=== PATIENT | male | born 1965 | race Caucasian/White ===

== ENCOUNTER 2018-09-07 16:33 | Emergency (ER) | payer BC, SELFPAY ==
[2018-09-07 16:55] VITALS: BP 117/75; PULSE 62; RESP 15; TEMP 36.2; O2SAT 98; BMI 22.9
--- NOTE | 2018-09-07 17:20 | ED.EYEPROB ---
HPI - Eye Problem <FRAN Mendenhall - Last Filed: 09/07/18 22:26> General Chief complaint: Eye Problems Stated complaint: LEFT EYE INJURY Time Seen by Provider: 09/07/18 17:16 Source: patient Mode of arrival: ambulatory Limitations: no limitations History of Present Illness HPI Narrative: 53-year-old male with history of depression is a nonsmoker for complaint of irritation to his left eye. He states that he was moving some shrubs and tree cutting some into his pickup truck to take to the dump when accidentally brushed up against a stick that was protruding out injuring his left eye. He reports having watering to the left eye. Injury is limited to the left eye. He denies any visual changes except due to the watering. He believes that his tetanus is up-to-date. He reports immunizations are up-to-date. He reports having minor pain to the left eye. No other concerns or complaints at this timeframe. MD chief complaint: eye pain and eye injury Related Data Home Medications Medication Instructions Recorded Confirmed multivitamin [Multiple Vitamins] 1 tab PO QDAY #0 tab 04/04/16 04/14/18 vitamins A,C,Q-[id number] [ICaps 1 ea PO #0 04/04/16 04/14/18 AREDS] Previous Rx's Medication Instructions Recorded ciprofloxacin HCl 2 drop EYE-LEFT QID 5 Days #2.5 ml 09/07/18 hydrocodone-acetaminophen [[place]] 1 tab PO Q4-6H PRN #10 tab 09/07/18 Allergies Allergy/AdvReac Type Severity Reaction Status Date / Time No Known Drug Allergies Allergy Verified 09/07/18 16:55 Review of Systems <FRAN Mendenhall - Last Filed: 09/07/18 22:26> Constitutional Denies chills, Denies fever(s), Denies lethargy and Denies weakness Eyes Comments: Injury left eye ENT Ears, Nose, Mouth, and Throat: Denies change in voice, Denies neck pain and Denies sore throat Cardiovascular Denies chest pain, Denies irregular heart rhythm, Denies lightheadedness, Denies palpitations, Denies dyspnea, Denies dyspnea on exertion and Denies orthopnea Respiratory Denies cough, Denies dyspnea, Denies dyspnea on exertion and Denies wheezing Gastrointestinal Gastrointestinal: Denies abdominal pain, Denies change in bowel habits, Denies diarrhea, Denies nausea and Denies vomiting Genitourinary Denies hematuria, Denies flank pain, Denies urinary incontinence and Denies urinary urgency Musculoskeletal Denies neck pain Integumentary/Breasts Denies pruritus, Denies erythema, Denies rash and Denies wounds Neurologic Denies weakness Endocrine Denies palpitations Allergic/Immunologic Denies wheezing PFSH <FRAN Mendenhall - Last Filed: 09/07/18 22:26> Medical History Depression (Chronic) Erectile dysfunction (Chronic) Hearing loss (Chronic 2009) Tinnitus (Chronic 2006) Colon polyps (Resolved 2014) Surgical History Anesthesia (Resolved) History of anterior cruciate ligament surgery (Resolved 2002) History of colonoscopy with polypectomy (Resolved 2014) History of vasectomy (Resolved 1994) Family History (Updated 04/14/18 @ 14:36 by Jayna Valdez) Mother Age: 83 Dementia Mental health problem Macular degeneration Diabetes mellitus Brother No problems noted. Brother No problems noted. Brother No problems noted. Father Heart disease CAD (coronary artery disease) S/P CABG (coronary artery bypass graft) Tobacco abuse [place] (myocardial infarction) Daughter SLE (systemic lupus erythematosus) Daughter No problems noted. Daughter No problems noted. Social History Smoking Status: Never smoker Family History Mother Age: 83 Dementia Mental health problem Macular degeneration Diabetes mellitus Brother No problems noted. Brother No problems noted. Brother No problems noted. Father Heart disease CAD (coronary artery disease) S/P CABG (coronary artery bypass graft) Tobacco abuse [place] (myocardial infarction) Daughter SLE (systemic lupus erythematosus) Daughter No problems noted. Daughter No problems noted. Social History Smoking Status: Never smoker Exam <FRAN Mendenhall - Last Filed: 09/07/18 22:26> Initial Vital Signs Initial Vital Signs: Vital Signs Temperature 97.1 F L 09/07/18 16:55 Pulse Rate 62 09/07/18 16:55 Respiratory Rate 15 09/07/18 16:55 Blood Pressure 117/75 09/07/18 16:55 Pulse Oximetry 98 09/07/18 16:55 Const General: cooperative and well developed Nutritional Appearance: well nourished Orientation: alert, awake, oriented x3 and not confused [facility] Mouth: oral mucosae normal and moist mucous membranes Eyes Eyelids: eyelids normal Conjunctivae: conjunctival abnormality left conjunctival injection Sclera: scleral abnormality left scleral injection Cornea: fluorescein used (Corneal abrasion appreciated to the left cornea approximately 5 mm) Pupils: PERRL EOM: EOM intact bilaterally Resp Effort & Inspection: normal respiratory effort, able to speak in complete sentences, no respiratory distress and no use of accessory muscles Auscultation: clear to auscultation bilaterally, no rales, no rhonchi and no wheezes Cardio Rate: regular rate Rhythm: regular rhythm Heart Sounds: no click, no gallops, no murmurs and no rubs Pulses: normal peripheral pulses Neuro General: alert, oriented x3, gait normal and no focal motor deficits Speech: speech normal <Bunny Lira DO - Last Filed: 09/08/18 02:01> Initial Vital Signs Initial Vital Signs: Vital Signs Temperature 97.1 F L 09/07/18 16:55 Pulse Rate 62 09/07/18 16:55 Respiratory Rate 15 09/07/18 16:55 Blood Pressure 117/75 09/07/18 16:55 Pulse Oximetry 98 09/07/18 16:55 Course <FRAN Mendenhall - Last Filed: 09/07/18 22:26> Orders Ordered: Discontinued Medications Proparacaine HCl (Parcaine 0.5% Ophth [place]) 1 drops EYE-LEFT NOW ONE Stop: 09/07/18 18:10 Last Admin: 09/07/18 18:09 Dose: 1 drop Vital Signs - 8 hr 09/07/18 18:10 Pulse Rate 65 Respiratory Rate 16 Blood Pressure 131/73 Pulse Oximetry 100 <Bunny Lira DO - Last Filed: 09/08/18 02:01> Orders Ordered: Discontinued Medications Proparacaine HCl (Parcaine 0.5% Ophth [place]) 1 drops EYE-LEFT NOW ONE Stop: 09/07/18 18:10 Last Admin: 09/07/18 18:09 Dose: 1 drop Vital Signs - 8 hr 09/07/18 18:10 Pulse Rate 65 Respiratory Rate 16 Blood Pressure 131/73 Pulse Oximetry 100 MDM - Eye Problem <FRAN Mendenhall - Last Filed: 09/07/18 22:26> [facility] Narrative Medical decision making narrative: Fluorescein exam with Wood's lamp shows a 5 mm corneal abrasion to the anterior/6:00 position of the left cornea. He is placed on ciprofloxacin drops. [id number] Tylenol and Motrin as needed for any discomfort. Small amount of [place] is prescribed for breakthrough pain. Follow up with primary care provider in the next few days for re-evaluation. Visual acuity was normal. Discharge Plan Departure Patient Disposition: Home Clinical Impression: Corneal abrasion Qualifiers: Encounter type: initial encounter Laterality: left Qualified Code(s): S05.02XA - Injury of conjunctiva and corneal abrasion without foreign body, left eye, initial encounter Discharge Date/Time: 09/07/18 18:10 Interventions: ED Discharge Assessment Last Done: 09/07/18 18:10 Instructions: DI for Corneal Abrasion Activity Restrictions/Additional Instructions: On exam corneal abrasion is appreciated. You are placed on an antibiotic to prevent infection. Use as directed. Use [id number] Tylenol or Motrin as needed for any discomfort. Small amount of [place] is provided for breakthrough pain. Follow up with her primary care provider for re-evaluation. For any worsening symptoms return to the emergency room. Prescriptions: New ciprofloxacin HCl 0.3 % drops 2 drop EYE-LEFT QID 5 Days Qty: 2.5 RF: 0 hydrocodone-acetaminophen [[place]] 5-325 mg tablet 1 tab PO Q4-6H PRN (Reason: pain) Qty: 10 RF: 0 No Action multivitamin [Multiple Vitamins] 1 EACH tablet 1 tab PO QDAY Qty: 0 RF: 0 vitamins A,C,T-ryxe-tyfstc [ICaps AREDS] 1 EACH capsule 1 ea PO Qty: 0 RF: 0 Referrals: Christa Thompson DO [Primary Care Provider] - <Bunny Lira DO - Last Filed: 09/08/18 02:01> Cosign ED Attending Rupertature Attestation: I was available for consultation during this patient's emergency department encounter
--- NOTE | 2018-09-07 17:45 | ED_ITS ---
HPI - Eye Problem <FRAN Mendenhall - Last Filed: 09/07/18 22:26> General Chief complaint: Eye Problems Stated complaint: LEFT EYE INJURY Time Seen by Provider: 09/07/18 17:16 Source: patient Mode of arrival: ambulatory Limitations: no limitations History of Present Illness HPI Narrative: 53-year-old male with history of depression is a nonsmoker for complaint of irritation to his left eye. He states that he was moving some shrubs and tree cutting some into his pickup truck to take to the dump when accidentally brushed up against a stick that was protruding out injuring his left eye. He reports having watering to the left eye. Injury is limited to the left eye. He denies any visual changes except due to the watering. He believes that his tetanus is up-to-date. He reports immunizations are up-to-date. He reports having minor pain to the left eye. No other concerns or complaints at this timeframe. MD chief complaint: eye pain and eye injury Related Data Home Medications Medication Instructions Recorded Confirmed multivitamin [Multiple Vitamins] 1 tab PO QDAY #0 tab 04/04/16 04/14/18 vitamins A,C,X-yuqq-ufipwv [ICaps 1 ea PO #0 04/04/16 04/14/18 AREDS] Previous Rx's Medication Instructions Recorded ciprofloxacin HCl 2 drop EYE-LEFT QID 5 Days #2.5 ml 09/07/18 hydrocodone-acetaminophen [[place]] 1 tab PO Q4-6H PRN #10 tab 09/07/18 Allergies Allergy/AdvReac Type Severity Reaction Status Date / Time No Known Drug Allergies Allergy Verified 09/07/18 16:55 Review of Systems <FRAN Mendenhall - Last Filed: 09/07/18 22:26> Constitutional Denies chills, Denies fever(s), Denies lethargy and Denies weakness Eyes Comments: Injury left eye ENT Ears, Nose, Mouth, and Throat: Denies change in voice, Denies neck pain and Denies sore throat Cardiovascular Denies chest pain, Denies irregular heart rhythm, Denies lightheadedness, Denies palpitations, Denies dyspnea, Denies dyspnea on exertion and Denies orthopnea Respiratory Denies cough, Denies dyspnea, Denies dyspnea on exertion and Denies wheezing Gastrointestinal Gastrointestinal: Denies abdominal pain, Denies change in bowel habits, Denies diarrhea, Denies nausea and Denies vomiting Genitourinary Denies hematuria, Denies flank pain, Denies urinary incontinence and Denies urinary urgency Musculoskeletal Denies neck pain Integumentary/Breasts Denies pruritus, Denies erythema, Denies rash and Denies wounds Neurologic Denies weakness Endocrine Denies palpitations Allergic/Immunologic Denies wheezing PFSH <FRAN Mendenhall - Last Filed: 09/07/18 22:26> Medical History Depression (Chronic) Erectile dysfunction (Chronic) Hearing loss (Chronic 2009) Tinnitus (Chronic 2006) Colon polyps (Resolved 2014) Surgical History Anesthesia (Resolved) History of anterior cruciate ligament surgery (Resolved 2002) History of colonoscopy with polypectomy (Resolved 2014) History of vasectomy (Resolved 1994) Family History (Updated 04/14/18 @ 14:36 by Jayna Valdez) Mother Age: 83 Dementia Mental health problem Macular degeneration Diabetes mellitus Brother No problems noted. Brother No problems noted. Brother No problems noted. Father Heart disease CAD (coronary artery disease) S/P CABG (coronary artery bypass graft) Tobacco abuse [place] (myocardial infarction) Daughter SLE (systemic lupus erythematosus) Daughter No problems noted. Daughter No problems noted. Social History Smoking Status: Never smoker Family History Mother Age: 83 Dementia Mental health problem Macular degeneration Diabetes mellitus Brother No problems noted. Brother No problems noted. Brother No problems noted. Father Heart disease CAD (coronary artery disease) S/P CABG (coronary artery bypass graft) Tobacco abuse [place] (myocardial infarction) Daughter SLE (systemic lupus erythematosus) Daughter No problems noted. Daughter No problems noted. Social History Smoking Status: Never smoker Exam <FRAN Mendenhall - Last Filed: 09/07/18 22:26> Initial Vital Signs Initial Vital Signs: Vital Signs Temperature 97.1 F L 09/07/18 16:55 Pulse Rate 62 09/07/18 16:55 Respiratory Rate 15 09/07/18 16:55 Blood Pressure 117/75 09/07/18 16:55 Pulse Oximetry 98 09/07/18 16:55 Const General: cooperative and well developed Nutritional Appearance: well nourished Orientation: alert, awake, oriented x3 and not confused [facility] Mouth: oral mucosae normal and moist mucous membranes Eyes Eyelids: eyelids normal Conjunctivae: conjunctival abnormality left conjunctival injection Sclera: scleral abnormality left scleral injection Cornea: fluorescein used (Corneal abrasion appreciated to the left cornea approximately 5 mm) Pupils: PERRL EOM: EOM intact bilaterally Resp Effort & Inspection: normal respiratory effort, able to speak in complete sentences, no respiratory distress and no use of accessory muscles Auscultation: clear to auscultation bilaterally, no rales, no rhonchi and no wheezes Cardio Rate: regular rate Rhythm: regular rhythm Heart Sounds: no click, no gallops, no murmurs and no rubs Pulses: normal peripheral pulses Neuro General: alert, oriented x3, gait normal and no focal motor deficits Speech: speech normal <Bunny Lira DO - Last Filed: 09/08/18 02:01> Initial Vital Signs Initial Vital Signs: Vital Signs Temperature 97.1 F L 09/07/18 16:55 Pulse Rate 62 09/07/18 16:55 Respiratory Rate 15 09/07/18 16:55 Blood Pressure 117/75 09/07/18 16:55 Pulse Oximetry 98 09/07/18 16:55 Course <FRAN Mendenhall - Last Filed: 09/07/18 22:26> Orders Ordered: Discontinued Medications Proparacaine HCl (Parcaine 0.5% Ophth [place]) 1 drops EYE-LEFT NOW ONE Stop: 09/07/18 18:10 Last Admin: 09/07/18 18:09 Dose: 1 drop Vital Signs - 8 hr 09/07/18 18:10 Pulse Rate 65 Respiratory Rate 16 Blood Pressure 131/73 Pulse Oximetry 100 <Bunny Lira DO - Last Filed: 09/08/18 02:01> Orders Ordered: Discontinued Medications Proparacaine HCl (Parcaine 0.5% Ophth [place]) 1 drops EYE-LEFT NOW ONE Stop: 09/07/18 18:10 Last Admin: 09/07/18 18:09 Dose: 1 drop Vital Signs - 8 hr 09/07/18 18:10 Pulse Rate 65 Respiratory Rate 16 Blood Pressure 131/73 Pulse Oximetry 100 MDM - Eye Problem <FRAN Mendenhall - Last Filed: 09/07/18 22:26> [facility] Narrative Medical decision making narrative: Fluorescein exam with Wood's lamp shows a 5 mm corneal abrasion to the anterior/6:00 position of the left cornea. He is placed on ciprofloxacin drops. [id number] Tylenol and Motrin as needed for any discomfort. Small amount of [place] is prescribed for breakthrough pain. Follow up with primary care provider in the next few days for re-evaluation. Visual acuity was normal. Discharge Plan Departure Patient Disposition: Home Clinical Impression: Corneal abrasion Qualifiers: Encounter type: initial encounter Laterality: left Qualified Code(s): S05.02XA - Injury of conjunctiva and corneal abrasion without foreign body, left eye, initial encounter Discharge Date/Time: 09/07/18 18:10 Interventions: ED Discharge Assessment Last Done: 09/07/18 18:10 Instructions: DI for Corneal Abrasion Activity Restrictions/Additional Instructions: On exam corneal abrasion is appreciated. You are placed on an antibiotic to prevent infection. Use as directed. Use [id number] Tylenol or Motrin as needed for any discomfort. Small amount of [place] is provided for breakthrough pain. Follow up with her primary care provider for re-evaluation. For any worsening symptoms return to the emergency room. Prescriptions: New ciprofloxacin HCl 0.3 % drops 2 drop EYE-LEFT QID 5 Days Qty: 2.5 RF: 0 hydrocodone-acetaminophen [[place]] 5-325 mg tablet 1 tab PO Q4-6H PRN (Reason: pain) Qty: 10 RF: 0 No Action multivitamin [Multiple Vitamins] 1 EACH tablet 1 tab PO QDAY Qty: 0 RF: 0 vitamins A,C,R-ocgz-qriugd [ICaps AREDS] 1 EACH capsule 1 ea PO Qty: 0 RF: 0 Referrals: Christa Thompson DO [Primary Care Provider] - <Bunny Lira DO - Last Filed: 09/08/18 02:01> Cosign ED Attending Rupertature Attestation: I was available for consultation during this patient's emergency department encounter
[2018-09-07] MEDS: PROPARACAINE 0.5% OPHTH SOL 1 DROPS EYE-LEFT (18:09)
[2018-09-07 18:10] VITALS: BP 131/73; PULSE 65; RESP 16; O2SAT 100
== END 2018-09-07 18:10 | disposition home or self-care (01) ==
PROVIDERS: Emergency Provider Nurse Practitioner Family; Family Provider Family Medicine; PCP Family Medicine
DX: S05.02XA Injury of conjunctiva and corneal abrasion without foreign body, left eye, initial encounter (principal)
CPT/HCPCS: 99283

== ENCOUNTER → 2018-10-07 07:18 | Outpatient (CLI) | payer BC, SELFPAY ==
[2018-10-07 08:57] LABS: Add Manual Diff / Slide Review NO; Basophils Absolute Auto 0 /uL (0-100); Basophils Percent Auto 1.1 % (0-2); Eosinophils Absolute Auto 100 /uL (0-450); Eosinophils Percent Auto 1.4 % (2-4); Hematocrit 42.9 % (41-53); Hemoglobin 14.9 g/dL (13.5-17.5); Lymphocytes Absolute Auto 1500 /uL (1100-4500); Lymphocytes Percent Auto 35.9 % (25-40); Mean Corpuscular HGB Conc 34.8 % (30-36); Mean Corpuscular Hemoglobin 31.8 PG (26-34); Mean Corpuscular Volume 91.3 fL (80-100); Monocytes Absolute Auto 400 /uL (0-900); Neutrophils Absolute Auto 2200 /uL (1500-7000); Neutrophils Percent Auto 52.6 % (50-75); Platelet Count 248 X10^3/uL (150-400); Red Cell Distribution Width 12.8 % (11.6-14.8); White Blood Cell Count 4.3 X10^3/uL (4.5-11.0)
[2018-10-07 09:28] LABS: Alanine Aminotransferase 33 IU/L (21-72); Albumin 4.4 g/dL (3.5-5.0); Albumin Globulin Ratio 1.8 (1.0-2.8); Alkaline Phosphatase 47 U/L (38-126); Aspartate Aminotransferase 31 IU/L (17-59); Bilirubin Total 0.4 mg/dL (0.2-1.3); Blood Urea Nitrogen 18 mg/dL (9-20); Calcium 9.2 mg/dL (8.4-10.2); Carbon Dioxide 29 mmol/L (22-32); Chloride 102 mmol/L (98-107); Cholesterol 167 mg/dL (140-199); Estimated Glomerular Filt Rate > 60.0 mL/min (>60); Globulin 2.4 g/dL (1.7-4.1); Glucose 86 mg/dL (70-100); HDL Cholesterol 63 mg/dL (40-60); HEMOLYSIS < 15 (0-50); LDL Cholesterol Calculated 93 mg/dL (<100); Potassium 4.4 mmol/L (3.4-5.1); Sodium 138 mmol/L (137-145); Total Protein 6.8 g/dL (6.3-8.2); Triglycerides 56 mg/dL (35-150)
[2018-10-07 09:53] LABS: Prostate Specific Antigen Scrn 1.08 ng/mL (0.1-4.0)
[2018-10-07 09:55] LABS: TSH w/ Reflex to FT4 1.96 uIU/mL (0.47-4.68)
== END ==
PROVIDERS: PCP Family Medicine; Visit Provider Family Medicine
DX: N52.9 Male erectile dysfunction, unspecified (principal); Z13.6 Encounter for screening for cardiovascular disorders; Z13.83 Encounter for screening for respiratory disorder NEC; Z13.89 Encounter for screening for other disorder; Z13.29 Encounter for screening for other suspected endocrine disorder; Z12.5 Encounter for screening for malignant neoplasm of prostate
CPT/HCPCS: 36415; 80053; 80061; 84443; 85025; G0103

== ENCOUNTER → 2019-03-22 16:38 | Outpatient (CLI) | payer SELFPAY ==
[2019-03-22 17:10] LABS: Urine Drug scr, USCG NIDA See Separate Report
== END ==
PROVIDERS: PCP Family Medicine
DX: Z04.89 Encounter for examination and observation for other specified reasons (principal)
CPT/HCPCS: 81099

== ENCOUNTER 2019-09-29 17:25 | Emergency (ER) | payer BC, SELFPAY ==
--- NOTE | 2019-09-29 17:33 | PC.NURSE ---
pt states he was picking up something heavy and felt a pop in his L bicep area. equal back end architect, unable to push up on my hand with his L hand/arm due to pain. mild swelling to L AC area.
[2019-09-29 17:34] VITALS: BP 136/80; PULSE 67; RESP 16; TEMP 36.8; O2SAT 97; BMI 22.9
--- NOTE | 2019-09-29 17:53 | ED_ITS ---
HPI - Extremity Injury (Upper) <FRAN Fierro - Last Filed: 09/29/19 23:23> General Chief Complaint: Extremity Injury, Upper Stated Complaint: thinks torn left bicep Time Seen by Provider: 09/29/19 17:37 Source: patient and family Mode of arrival: Ambulatory Limitations: no limitations History of Present Illness HPI narrative: This is a 54 year male, nonsmoker, who presents to ED with significant other with left deltoid discomfort. Patient reports he was lifting heavy piece of furniture off the floor and he felt sudden pop over the bicep and discomfort and weakness to left arm. Patient denies any discomfort with rest but increasing pain with flexion and extension which pain radiates down to forearm. Patient right dominant hand. Patient states intact sensation. Adam abimbola called [facility] office and was suggested for an ED evaluation and MRI test to be done. Patient has not taken any medications before coming into ED. patient had knee surgery in the past otherwise states healthy. Related Data Home Medications Medication Instructions Recorded Confirmed multivitamin [Multiple Vitamins] 1 tab PO QDAY #0 tab 04/04/16 04/14/18 vitamins A,C,F-mddc-vjdcpb [ICaps 1 ea PO #0 04/04/16 04/14/18 AREDS] Previous Rx's Medication Instructions Recorded hydrocodone-acetaminophen [[place]] 1 tab PO Q4-6H PRN #10 tab 09/07/18 sildenafil 25 mg tablet 25 mg PO DAILY PRN #30 tab 10/14/18 Allergies Allergy/AdvReac Type Severity Reaction Status Date / Time No Known Drug Allergies Allergy Verified 09/07/18 16:55 Review of Systems <FRAN Fierro - Last Filed: 09/29/19 23:23> Review of Systems Narrative: General: Denies fever, chills, fatigue, malaise, sweats. HEENT: Denies sinus pain, ear pain, sore throat, difficulty swallowing, dizziness. Respiratory: Denies dyspnea, cough, wheezing, hemoptysis, sputum. Cardiovascular: Denies chest pain, palpitations, orthopnea, edema. Gastrointestinal: Denies nausea, vomiting, abdominal pain, diarrhea, constipation, melena. : Denies dysuria, frequency, incontinence, hematuria, urinary retention. Musculoskeletal: See HPI Skin: Denies rash, skin lesions, or other. Neurologic: Denies weakness, headache, numbness, change in speech, confusion, seizures, incoordination. Psychiatric: No concerning psychosocial issues. 12-point review of systems is negative except for those stated above. Patient History <FRAN Fierro - Last Filed: 09/29/19 23:23> Medical History Colon polyps (Resolved 2014) Depression (Chronic) Erectile dysfunction (Chronic) Hearing loss (Chronic 2009) Tinnitus (Chronic 2006) Surgical History Anesthesia (Resolved) History of anterior cruciate ligament surgery (Resolved 2002) History of colonoscopy with polypectomy (Resolved 2014) History of vasectomy (Resolved 1994) Family History Mother Age: 85 Dementia Mental health problem Macular degeneration Diabetes mellitus Brother No problems noted. Brother No problems noted. Brother No problems noted. Father Heart disease CAD (coronary artery disease) S/P CABG (coronary artery bypass graft) Tobacco abuse [place] (myocardial infarction) Daughter SLE (systemic lupus erythematosus) Daughter No problems noted. Daughter No problems noted. Social History Smoking Status: Never smoker Smoking Status: Never smoker alcohol intake frequency: 0-2 drinks per day Substance Use Type: does not use Exam <FRAN Fierro - Last Filed: 09/29/19 23:23> Narrative Exam Narrative: General appearance: well developed, well nourished, in no acute distress. Head: normocephalic, atraumatic, no scalp lesions, non-tender. ENT: Difficulty hearing. Nose without bleeding, purulent discharge. Mucous membrane moist, no mucosal lesion. Throat without erythema, tonsillar hypertrophy or exudate. Uvula in midline, airway patent. Neck/Thyroid: neck supple, full range of motion, no visible masses or meningeal signs. No JVD, non-tender without lymphadenopathy. Skin: no suspicious rashes, lesions over visible areas. Warm and dry and appropriate color for ethnicity. Heart: no clubbing, no cyanosis, no edema. S1 and S2 normal. RRR w/o murmurs, clicks, or bruits. Lungs: Breathing even and unlabored. No stridor. No accessory muscles used. Able to speak in full sentences. Chest: normal shape and expansion. Abdomen: non-obese, non-distended. Neurologic: alert and oriented. Cognitive exam, [employer] and PNS grossly intact on informal exam. Psych: good eye contact, normal affect. Initial Vital Signs Initial Vital Signs: Vital Signs Temperature 98.2 F 09/29/19 17:34 Pulse Rate 67 09/29/19 17:34 Respiratory Rate 16 09/29/19 17:34 Blood Pressure 136/80 09/29/19 17:34 Pulse Oximetry 97 09/29/19 17:34 Extrem Left upper extremity: normal to inspection, full ROM, normal capillary refill, shoulder/upper arm Details: inspection abnormal, tenderness Location: over the biceps tendon (Radiating to forearm with flexion and extension motion) and normal ROM; no swelling, no ecchymosis, no deformity and no unsual warmth and elbow/forearm Details: normal to inspection, tenderness (Palmar aspect forearm discomfort with flexion and extension), normal ROM and distal pulses intact; no unusual warmth, no ecchymosis, no crepitus and no deformity; no cyanosis and no edema <Sushma Crouch DO - Last Filed: 09/30/19 07:26> Initial Vital Signs Initial Vital Signs: Vital Signs Temperature 98.2 F 09/29/19 17:34 Pulse Rate 67 09/29/19 17:34 Respiratory Rate 16 09/29/19 17:34 Blood Pressure 136/80 09/29/19 17:34 Pulse Oximetry 97 09/29/19 17:34 Scores <FRAN Fierro - Last Filed: 09/29/19 23:23> GCS [place] coma scale eye opening: Spontaneous [place] coma scale verbal response: Orientated [place] coma scale motor response: Obey commands [place] coma scale total score: 15 Course <FRAN Fierro - Last Filed: 09/29/19 23:23> Vital Signs Vital signs: Vital Signs - 8 hr 09/29/19 17:34 Temperature 98.2 F Pulse Rate 67 Respiratory Rate 16 Blood Pressure 136/80 Pulse Oximetry 97 <Sushma Crouch DO - Last Filed: 09/30/19 07:26> Vital Signs Vital signs: Vital Signs - 8 hr 09/29/19 17:34 Temperature 98.2 F Pulse Rate 67 Respiratory Rate 16 Blood Pressure 136/80 Pulse Oximetry 97 [facility] - Extremity Injury (Upper) <FRAN Fierro - Last Filed: 09/29/19 23:23> Differential Diagnosis Differential diagnosis: Likely other (Partial biceps tendon rupture, tendinitis, strain of left upper arm) Medical Records Attestation: I reviewed the patient's medical records. [facility] Narrative Medical decision making narrative: This is a 54-year-old male who presents to ED with chief complain of left deltoid discomfort with flexion and extension which radiates to primary aspect of forearm after he lifted up a have him piece furniture off the floor and felt a pop. Patient and spouse significant other states they are here to have MRI test done as suggested by [facility] office when they contacted. Patient had intact sensation on left upper arm. No obvious deformity noted at rest and flexing left arm. Strength was equal bilaterally on upper extremities. Patient and significant other informed that MRI test could be arranged by PCP or orthopedist if this is indicated of patiently since it is after hours and MRI test is not indicated per physical exam. Patient offered with ice pack, NSAIDS, Tylenol and acewrap for discomfort, inflammation, rest. However, patient states he could take his own Tylenol, Motrin, Shay wrap at home. They state they are here only for MRI test. Patient advised to use RICE therapy for next few days if his discomfort impro ves since this could be tendinitis and follow-up with [facility] orthopedist/PCP with persistent pain or weakness. Patient verbalized understanding and agreement with treatment plan. Discharge Plan Departure Patient Disposition: Home Clinical Impression: Arm pain, left Discharge Date/Time: 09/29/19 18:22 Instructions: DI for Tendinitis, DI for Arm Pain Activity Restrictions/Additional Instructions: You have been diagnosed with [left arm pain. It is likely her pain is due to tendinitis or partial biceps tendon injury/rupture. Unfortunately, MRI test is not done today. This can be arranged by her primary care physician or orthopedist.]. What to do: *Take your medications as directed. You can take [id number] Tylenol and or Motrin as needed for discomfort. NSAIDs helps with the inflmmaion. You can take 650-1000 mg Tylenol 3 to 4 times a day. Motrin/ibuprofen 400 mg 3 times a day with food. You can use cool pack on affected site for next couple of days. Use Shay wrap to remind yourself to decrease flex and extend of year upper. *Follow up with your primary care provider in 2-3 days, call for an appointment. Let them know you were seen in the ED and that we asked you to be seen in follow up. *Return to ED if you have any new, worsening, or concerning symptoms, such as [chest pain, breathing difficulty, unable to tolerate fluids, week/tingling/numbness to affected arm fever or any acute concerns.]. Prescriptions: No Action sildenafil 25 mg tablet 25 mg PO DAILY PRN (Reason: sexual activity) Qty: 30 RF: 0 multivitamin [Multiple Vitamins] 1 EACH tablet 1 tab PO QDAY Qty: 0 RF: 0 vitamins A,C,M-hnzu-aazxpg [ICaps AREDS] 1 EACH capsule 1 ea PO Qty: 0 RF: 0 hydrocodone-acetaminophen [[place]] 5-325 mg tablet 1 tab PO Q4-6H PRN (Reason: pain) Qty: 10 RF: 0 Referrals: [facility] [Provider Group] Christa Thompson DO [Primary Care Provider] -
== END 2019-09-29 18:22 | disposition home or self-care (01) ==
PROVIDERS: Emergency Provider Nurse Practitioner Family; PCP Family Medicine
DX: M79.622 Pain in left upper arm (principal); X50.0XXA Overexertion from strenuous movement or load, initial encounter
CPT/HCPCS: 99281

== ENCOUNTER → 2019-10-02 15:19 | Outpatient (CLI) | payer BC, SELFPAY ==
--- NOTE | 2019-10-02 | DI.MRI.S_ITS ---
PROCEDURE: MR ELBOW LT W CON INDICATIONS: Pain in left upper arm TECHNIQUE: Noncontrast coronal proton density fast spin echo and T2 fast spin echo with fat saturation, axial and sagittal T1 spin echo and T2 fast spin echo with fat saturation through the elbow. COMPARISON: None. FINDINGS: Image quality: Excellent. Lateral structures: The lateral ulnar collateral ligament and radial collateral ligament both appear intact. The overlying common extensor tendon also appears normal. Medial structures: The ulnar collateral ligament appears intact. The overlying common flexor tendon appears normal. The ulnar nerve appears normal in size and signal within the cubital tunnel. Anterior structures: Complete rupture of the biceps tendon is seen which is approximately 2.2 cm retracted from the insertion site. Tendon stump visualized on image 8/5, image 18/9 There is adjacent fluid and edema. Brachialis tendon appears grossly intact The median and radial neurovascular bundles appear normal; no focal muscle atrophy to suggest nerve impingement. Posterior structures: There is mild distal insertional triceps tendinopathy No olecranon bursal fluid. Bone and cartilage: No bone marrow contusions or fractures. No osteochondral injuries. IMPRESSION: Complete rupture of the biceps tendon as detailed above Mild distal insertional triceps tendinopathy, technically age-indeterminate Dictated by: Arsh Geller M.D. on 10/02/2019 at 16:54 Approved by: Arsh Geller M.D. on 10/02/2019 at 17:01
[2019-10-03 00:54] LABS: COVID19 Sendout Not Detected (Not Detect)
== END ==
PROVIDERS: Physician Assistant; PCP Family Medicine; Referring Provider Family Medicine; Visit Provider Orthopaedic Surgery
DX: Z01.812 Encounter for preprocedural laboratory examination (principal); M79.622 Pain in left upper arm; S46.212A Strain of muscle, fascia and tendon of other parts of biceps, left arm, initial encounter
CPT/HCPCS: 73221; 87635

== ENCOUNTER → 2019-12-08 08:24 | Outpatient (CLI) | payer BC, SELFPAY ==
[2019-12-08 08:50] LABS: Add Manual Diff / Slide Review NO; Basophils Absolute Auto 100 /uL (0-100); Basophils Percent Auto 1.1 % (0-2); Eosinophils Absolute Auto 0 /uL (0-450); Hemoglobin 15.3 g/dL (13.5-17.5); Lymphocytes Absolute Auto 1900 /uL (1100-4500); Lymphocytes Percent Auto 39.6 % (25-40); Mean Corpuscular HGB Conc 34.7 % (30-36); Mean Corpuscular Hemoglobin 31.6 PG (26-34); Mean Corpuscular Volume 91.2 fL (80-100); Monocytes Absolute Auto 500 /uL (0-900); Monocytes Percent Auto 10.5 % (3-14); Neutrophils Absolute Auto 2300 /uL (1500-7000); Neutrophils Percent Auto 47.8 % (50-75); Platelet Count 237 X10^3/uL (150-400); Red Blood Cell Count 4.83 X10^6/uL (4.5-5.9); Red Cell Distribution Width 13.5 % (11.6-14.8); White Blood Cell Count 4.8 X10^3/uL (4.5-11.0)
[2019-12-08 09:11] LABS: Alanine Aminotransferase 26 IU/L (<50); Albumin 4.6 g/dL (3.5-5.0); Alkaline Phosphatase 54 U/L (38-126); Aspartate Aminotransferase 33 IU/L (17-59); BUN Creatinine Ratio 20.5 (6-22); Bilirubin Total 0.6 mg/dL (0.2-1.3); Blood Urea Nitrogen 18 mg/dL (9-20); Calcium 9.6 mg/dL (8.4-10.2); Carbon Dioxide 31 mmol/L (22-32); Chloride 103 mmol/L (98-107); Cholesterol 183 mg/dL (140-199); Estimated Glomerular Filt Rate > 60.0 mL/min (>60); Globulin 2.3 g/dL (1.7-4.1); Glucose 94 mg/dL (70-100); HDL Cholesterol 73 mg/dL (40-60); HEMOLYSIS < 15 (0-50); LDL Cholesterol Calculated 101 mg/dL (<100); Potassium 4.7 mmol/L (3.4-5.1); Sodium 137 mmol/L (137-145); Total Protein 6.9 g/dL (6.3-8.2); Triglycerides 47 mg/dL (35-150)
== END ==
PROVIDERS: PCP Family Medicine; Referring Provider Family Medicine; Visit Provider Family Medicine
DX: Z00.00 Encounter for general adult medical examination without abnormal findings (principal); Z02.89 Encounter for other administrative examinations; R53.83 Other fatigue
CPT/HCPCS: 36415; 80053; 80061; 84443; 85025

== ENCOUNTER → 2020-12-10 07:23 | Outpatient (CLI) | payer BC, SELFPAY ==
[2020-12-10 08:29] LABS: Add Manual Diff / Slide Review NO; Basophils Absolute Auto 0 /uL (0-100); Basophils Percent Auto 0.8 % (0-2); Eosinophils Absolute Auto 100 /uL (0-450); Eosinophils Percent Auto 1.6 % (2-4); Hematocrit 43.3 % (41-53); Hemoglobin 14.4 g/dL (13.5-17.5); Lymphocytes Absolute Auto 2200 /uL (1100-4500); Lymphocytes Percent Auto 41.7 % (25-40); Mean Corpuscular HGB Conc 33.3 % (30-36); Mean Corpuscular Hemoglobin 30.5 PG (26-34); Mean Corpuscular Volume 91.7 fL (80-100); Monocytes Absolute Auto 500 /uL (0-900); Monocytes Percent Auto 10.4 % (3-14); Neutrophils Absolute Auto 2400 /uL (1500-7000); Neutrophils Percent Auto 45.5 % (50-75); Platelet Count 239 X10^3/uL (150-400); Red Blood Cell Count 4.72 X10^6/uL (4.5-5.9); Red Cell Distribution Width 13.7 % (11.6-14.8); White Blood Cell Count 5.3 X10^3/uL (4.5-11.0)
[2020-12-10 08:46] LABS: Alanine Aminotransferase 28 IU/L (<50); Albumin 4.1 g/dL (3.5-5.0); Albumin Globulin Ratio 1.5 (1.0-2.8); Alkaline Phosphatase 56 U/L (38-126); Aspartate Aminotransferase 37 IU/L (17-59); Bilirubin Total 0.8 mg/dL (0.2-1.3); Blood Urea Nitrogen 18 mg/dL (9-20); Calcium 9.3 mg/dL (8.4-10.2); Carbon Dioxide 26 mmol/L (22-32); Chloride 106 mmol/L (98-107); Cholesterol 178 mg/dL (140-199); Estimated Glomerular Filt Rate > 60.0 mL/min (>60); Globulin 2.8 g/dL (1.7-4.1); Glucose 88 mg/dL (70-100); HDL Cholesterol 74 mg/dL (40-60); HEMOLYSIS < 15 (0-50); LDL Cholesterol Calculated 96 mg/dL (<100); Potassium 3.9 mmol/L (3.4-5.1); Sodium 139 mmol/L (137-145); Total Protein 6.9 g/dL (6.3-8.2); Triglycerides 38 mg/dL (35-150)
[2020-12-10 09:13] LABS: Prostate Specific Antigen 0.917 ng/mL (0.10-4.00)
== END ==
PROVIDERS: PCP Family Medicine; Referring Provider Family Medicine; Visit Provider Family Medicine
DX: Z13.0 Encounter for screening for diseases of the blood and blood-forming organs and certain disorders involving the immune mechanism (principal); Z13.220 Encounter for screening for lipoid disorders; Z12.5 Encounter for screening for malignant neoplasm of prostate
CPT/HCPCS: 36415; 80053; 80061; 84153; 85025

== ENCOUNTER → 2021-12-04 09:45 | Outpatient (CLI) | payer BC, SELFPAY ==
--- NOTE | 2021-12-04 09:46 | DI.RAD.S_ITS ---
PROCEDURE: XR CHEST 2V INDICATIONS: cough, fatigue, chest congestion, hx of PNA TECHNIQUE: 2 views of the chest were acquired. COMPARISON: None. FINDINGS: Surgical changes and devices: None. Lungs and pleura: Lungs are clear. No pleural effusions or pneumothorax. Mediastinum: Mediastinal contours are normal. Heart size is normal. Bones and chest wall: No suspicious bony abnormalities. Soft tissues appear unremarkable. IMPRESSION: No acute cardiopulmonary disease process. Dictated by: Aidee Gallagher MD, PhD on 12/04/2021 at 9:54 Approved by: Aidee Gallagher MD, PhD on 12/04/2021 at 9:55
== END ==
PROVIDERS: PCP Family Medicine; Referring Provider Physician Assistant; Visit Provider Physician Assistant
DX: R09.89 Other specified symptoms and signs involving the circulatory and respiratory systems (principal); R05.9 Cough, unspecified; R53.83 Other fatigue; Z87.01 Personal history of pneumonia (recurrent)
CPT/HCPCS: 71046

== ENCOUNTER → 2022-01-28 17:14 | Outpatient (CLI) | payer BC, SELFPAY ==
--- NOTE | 2022-01-28 17:19 | DI.US.S_ITS ---
PROCEDURE: US ABDOMEN LIMITED INDICATIONS: possible bilateral inguinal hernias TECHNIQUE: Real-time focused scanning was performed of the inguinal region, with image documentation. COMPARISON: None. FINDINGS: There are small bilateral bowel containing inguinal hernias. These appear at least partially reducible. IMPRESSION: Bilateral bowel containing inguinal hernias which appear at least partially reducible by ultrasound examination. Dictated by: Ilsa Dunbar M.D. on 01/29/2022 at 10:18 Approved by: Ilsa Dunbar M.D. on 01/29/2022 at 10:19
== END ==
PROVIDERS: PCP Family Medicine; Referring Provider Nurse Practitioner Family; Visit Provider Nurse Practitioner Family
DX: K40.20 Bilateral inguinal hernia, without obstruction or gangrene, not specified as recurrent (principal)
CPT/HCPCS: 76705

== ENCOUNTER → 2022-04-13 09:05 | Outpatient (CLI) | payer BC, SELFPAY ==
[2022-04-13 11:20] LABS: COVID19 -Nasal RAPID Negative (Negative)
== END ==
PROVIDERS: PCP Family Medicine; Visit Provider Surgery
DX: Z20.822 Contact with and (suspected) exposure to COVID-19 (principal); Z01.812 Encounter for preprocedural laboratory examination
CPT/HCPCS: 87635; C9803

== ENCOUNTER 2022-04-14 09:29 | Day surgery (SDC) | payer BC, SELFPAY ==
[2022-04-10 08:35] VITALS: BMI 20.6
[2022-04-14] VITALS (9 sets, daily range): BP systolic 106–126; BP diastolic 73–87; PULSE 66–85; RESP 12–23; TEMP 36.4–36.5; O2SAT 93–96; BMI 20.6
[2022-04-14] MEDS: LACTATED RINGERS 1,000 ML 100 ML IV ×2 (10:02→13:30)
--- NOTE | 2022-04-14 11:35 | PM.HP.1 ---
History of Present Illness History of Present Illness Date Patient Seen: 04/14/22 Time Patient Seen: 11:35 Chief complaint: Lap Bilat Inguinal Hernia Repair w/Mesh Narrative: Nico is here for his hernia repair. No changes since January. See the office note from January for details. Patient History Medical History (Updated 04/14/22 @ 11:36 by Aurelio Waller MD) Colon polyps (2014) COVID-19 virus infection (11/08/21) Depression Erectile dysfunction Hearing loss (2009) Tinnitus (2006) Surgical History (Updated 04/10/22 @ 08:42 by Chey Galvan RN) Anesthesia History of anterior cruciate ligament surgery (2000) History of arthroscopy (09/2019) History of colonoscopy with polypectomy (2014) History of vasectomy (1994) Hx of arthroscopy of right knee (2002) Family & Social History Family History Mother Age: 87 Dementia Mental health problem Macular degeneration Diabetes mellitus Brother No problems noted. Brother No problems noted. Brother No problems noted. Father Heart disease CAD (coronary artery disease) S/P CABG (coronary artery bypass graft) Tobacco abuse [place] (myocardial infarction) Daughter SLE (systemic lupus erythematosus) Daughter No problems noted. Daughter No problems noted. Social History: household members spouse Tobacco & Substance use: Smoking Status Former smoker alcohol intake current alcohol intake frequency 0-2 drinks per day Substance Use Type does not use Meds Home Medications and Allergies Home Medications Medication Instructions Recorded Confirmed Type multivitamin (Multiple Vitamins 1 tab PO QDAY #0 tabs 04/04/16 04/10/22 History tablet) vitamins A,C,P-xfst-bxdvun 14,320 1 ea PO BID ##0 04/04/16 04/14/22 History unit-226 mg-200 unit capsule (ICaps AREDS) sildenafil 25 mg tablet 25 mg PO DAILY PRN sexual activity 01/16/21 04/14/22 Rx #30 tabs codeine 10 mg-guaifenesin 200 mg/5 10 ml PO Q4-6H PRN cough #473 mL 01/29/22 04/10/22 Rx mL oral liquid Allergies Allergy/AdvReac Type Severity Reaction Status Date / Time No Known Drug Allergies Allergy Verified 04/14/22 10:05 Exam Vital Signs (past 8 hours): - 04/14/22 10:07 Pulse Rate 74 Respiratory Rate 16 Blood Pressure 118/74 Pulse Oximetry 96 Oxygen Delivery Method Room Air Oxygen Delivery Method Room Air Const General: healthy appearing Resp Effort & Inspection: normal respiratory effort Assessment & Plan Assessment and plan (1) Bilateral inguinal hernia: Status: Acute Plan Will plan for laparoscopic bilateral inguinal hernia repair with mesh. Reviewed risks and benefits and he would like to proceed. Time Spent With Patient Critical Care time: I spent a total of [] minutes of critical care time on this patient's care today; this time is exclusive of procedural time.
[2022-04-14] MEDS: CEFAZOLIN 2 GM/100 ML PREMIX 100 ML IV (12:18)
--- NOTE | 2022-04-14 12:36 | SUR.OPER ---
Supine on padded OR bed, head on pillow, arms padded and tucked at sides, legs uncrossed, safety belt at thigh, tape over blanket over lower legs . [place] pigazzi pad under patient
--- NOTE | 2022-04-14 12:43 | SUR.OPER ---
Supine on padded OR bed, head on pillow, arms padded with foam and tucked at sides, legs uncrossed, safety belt at thigh, tape over blanket over lower legs . [place] pigazzi under torso
[2022-04-14] MEDS: BUPIVACAINE 0.5% (PF) 30 ML, EPINEPHrine 0.15 MG INJ (12:48)
[2022-04-14] MEDS: LIDOCAINE 1% 20 ML INJ (12:49)
--- NOTE | 2022-04-14 14:12 | PM.OP.1 ---
Operative Date/Time/Diagnoses Date of procedure: 04/14/22 Time of procedure: 14:12 Pre-op diagnosis: Bilateral inguinal hernia Post-op diagnosis: same Procedure & Clinicians Procedure: Laparoscopic bilateral inguinal hernia repair with mesh Same procedure as scheduled: Yes Surgeon: Aurelio Waller Anesthesia Type: General Operative Notes Procedure in detail: Surgeon: Aurelio Waller MD The patient was given preoperative antibiotics. The patient was brought to the operating room, placed on the table in the supine position with the arms tucked and general anesthesia was induced. The abdomen was prepped and draped in the usual fashion. A time-out was performed. A 1 cm supraumbilical incision was created and dissection was carried down to the fascia. The fascia was scored transversely with cautery. A Peon clamp was used to davis the peritoneum. The Denae port was placed and the abdomen was insufflated to 15 mmHg. The camera was inserted, there was no evidence of any injury from the entry. 5 mm ports were placed under direct vision in the mid left and mid right abdomen. The patient was positioned in steep Trendelenburg. We started on the right side. The right inguinal hernia was larger and appeared to be a pantaloon hernia with both the direct and indirect component however the direct component was likely symptomatic portion. We created a right peritoneal flap. The peritoneum was dissected off the cord structures down to the curve of the vas deferens. A a medium right Bard mesh was brought in and placed over the defect with the medial edge against Perfecto's ligament. We then closed the peritoneal flap with a running 3-0 barbed suture. Next we turned our attention to the left side. The peritoneum was dissected off the left cord structures. A a medium left Bard mesh was brought in and placed over the defect with the medial edge against Perfecto's ligament. We then closed the peritoneal flap with a running 3-0 barbed suture. We took one last look around the abdomen and saw no other abnormalities. The suture was removed and accounted for. The 5 mm ports were removed under direct vision. The abdomen was desufflated. The Denae port was removed. Additional local was injected into the fascia and the infraumbilical fascial incision was closed with 3 interrupted 0 Vicryl sutures. The skin incisions were closed with 4 Monocryl, Steri-Strips and Band-Aids. Post-operative Condition: stable Disposition: PACU
--- NOTE | 2022-04-14 14:18 | SUR.PHASEI ---
Crepitus noted in patient's upper chest. Dr. Waller notified. No new orders.
[2022-04-14] MEDS: OXYCODONE IR 5 MG TABLET PO (14:31)
--- NOTE | 2022-04-14 15:39 | SUR.PHASEII ---
Patient ambulated with steady gait to bathroom and voided without difficulty. Tolerated PO fluids and snacks. Provided discharge instructions to spouse and patient. They stated understanding. Discharged patient by wheelchair to private vehicle in stable condition. See flowsheet for assessment details.
== END 2022-04-14 15:30 | disposition home or self-care (01) ==
PROVIDERS: PCP Family Medicine; Referring Provider Surgery; Visit Provider Surgery
PROC: 0YQ64ZZ Repair Left Inguinal Region, Percutaneous Endoscopic Approach (ICD-10-PCS; CPT 49650; principal; 2022-04-14 11:00)
DX: K40.20 Bilateral inguinal hernia, without obstruction or gangrene, not specified as recurrent (principal)
CPT/HCPCS: 49650; J0171; J0690; J1100; J2250; J2405; J2704; J3010

== ENCOUNTER → 2022-04-27 08:01 | Outpatient (CLI) | payer BC, SELFPAY ==
[2022-04-27 09:25] LABS: Add Manual Diff / Slide Review NO; Basophils Absolute Auto 0 /uL (0-100); Eosinophils Absolute Auto 100 /uL (0-450); Eosinophils Percent Auto 2.2 % (2-4); Hematocrit 40.8 % (41-53); Hemoglobin 13.7 g/dL (13.5-17.5); Lymphocytes Absolute Auto 1600 /uL (1100-4500); Lymphocytes Percent Auto 35.8 % (25-40); Mean Corpuscular HGB Conc 33.5 % (30-36); Mean Corpuscular Hemoglobin 30.4 PG (26-34); Mean Corpuscular Volume 90.8 fL (80-100); Monocytes Absolute Auto 400 /uL (0-900); Monocytes Percent Auto 8.1 % (3-14); Neutrophils Absolute Auto 2400 /uL (1500-7000); Neutrophils Percent Auto 52.9 % (50-75); Platelet Count 241 X10^3/uL (150-400); Red Blood Cell Count 4.49 X10^6/uL (4.5-5.9); Red Cell Distribution Width 13.4 % (11.6-14.8); White Blood Cell Count 4.5 X10^3/uL (4.5-11.0)
[2022-04-27 09:53] LABS: Alanine Aminotransferase 23 IU/L (<50); Albumin 3.8 g/dL (3.5-5.0); Albumin Globulin Ratio 1.5 (1.0-2.8); Alkaline Phosphatase 62 U/L (38-126); Aspartate Aminotransferase 25 IU/L (17-59); BUN Creatinine Ratio 27.1 (6-22); Bilirubin Total 0.3 mg/dL (0.2-1.3); Blood Urea Nitrogen 23 mg/dL (9-20); Calcium 8.8 mg/dL (8.4-10.2); Carbon Dioxide 29 mmol/L (22-32); Chloride 103 mmol/L (98-107); Cholesterol 166 mg/dL (140-199); Estimated Glomerular Filt Rate > 60 mL/min (>60); Globulin 2.6 g/dL (1.7-4.1); Glucose 98 mg/dL (70-100); HDL Cholesterol 69 mg/dL (40-60); HEMOLYSIS < 15 (0-50); LDL Cholesterol Calculated 90 mg/dL (<100); Potassium 4.6 mmol/L (3.4-5.1); Sodium 138 mmol/L (137-145); Total Protein 6.4 g/dL (6.3-8.2); Triglycerides 36 mg/dL (35-150)
[2022-04-27 10:14] LABS: Prostate Specific Antigen Scrn 1.17 ng/mL (0.1-4.0)
== END ==
PROVIDERS: PCP Family Medicine; Referring Provider Family Medicine; Visit Provider Family Medicine
DX: Z13.220 Encounter for screening for lipoid disorders (principal); Z12.5 Encounter for screening for malignant neoplasm of prostate; K21.9 Gastro-esophageal reflux disease without esophagitis
CPT/HCPCS: 36415; 80053; 80061; 85025; G0103

== ENCOUNTER → 2023-04-16 08:30 | Outpatient (CLI) | payer BC, SELFPAY ==
[2023-04-16 08:55] LABS: Add Manual Diff / Slide Review NO; Basophils Absolute Auto 100 /uL (0-100); Basophils Percent Auto 0.9 % (0-2); Eosinophils Absolute Auto 100 /uL (0-450); Eosinophils Percent Auto 1.1 % (2-4); Hematocrit 42.2 % (41-53); Hemoglobin 14.6 g/dL (13.5-17.5); Lymphocytes Absolute Auto 2000 /uL (1100-4500); Lymphocytes Percent Auto 28.1 % (25-40); Mean Corpuscular HGB Conc 34.6 % (30-36); Mean Corpuscular Hemoglobin 31.2 PG (26-34); Mean Corpuscular Volume 89.9 fL (80-100); Monocytes Absolute Auto 600 /uL (0-900); Monocytes Percent Auto 8.4 % (3-14); Neutrophils Absolute Auto 4300 /uL (1500-7000); Neutrophils Percent Auto 61.5 % (50-75); Platelet Count 278 X10^3/uL (150-400); Red Cell Distribution Width 12.8 % (11.6-14.8); White Blood Cell Count 7.1 X10^3/uL (4.5-11.0)
[2023-04-16 09:24] LABS: Alanine Aminotransferase 23 IU/L (<50); Albumin 4.2 g/dL (3.5-5.0); Albumin Globulin Ratio 1.7 (1.0-2.8); Alkaline Phosphatase 55 U/L (38-126); Aspartate Aminotransferase 26 IU/L (17-59); BUN Creatinine Ratio 23.3 (6-22); Bilirubin Total 0.4 mg/dL (0.2-1.3); Blood Urea Nitrogen 20 mg/dL (9-20); Calcium 9.5 mg/dL (8.4-10.2); Carbon Dioxide 28 mmol/L (22-32); Chloride 105 mmol/L (98-107); Estimated Glomerular Filt Rate > 60 mL/min (>60); Globulin 2.5 g/dL (1.7-4.1); Glucose 101 mg/dL (70-100); HEMOLYSIS < 15 (0-50); Potassium 4.4 mmol/L (3.4-5.1); Sodium 137 mmol/L (137-145); Total Protein 6.7 g/dL (6.3-8.2)
[2023-04-16 09:32] LABS: Vitamin D 25 Hydroxy (D3) 24.6 ng/mL (30.0-100.0)
[2023-04-16 10:25] LABS: Folate 14.8 ng/mL (2.76-20.0); Vitamin B12 677 pg/mL (239-931)
[2023-04-23 08:10] LABS: Percent Free Testosterone 2.88 % (1.50-4.20); Testosterone Total 281.2 ng/dL (264.0-916.0)
== END ==
PROVIDERS: PCP Student in an Organized Health Care Education/Training Program; Referring Provider Student in an Organized Health Care Education/Training Program; Visit Provider Student in an Organized Health Care Education/Training Program
DX: R53.83 Other fatigue (principal)
CPT/HCPCS: 36415; 80053; 82306; 82607; 82746; 84402; 84403; 84443; 85025

== ENCOUNTER → 2024-02-22 07:09 | Outpatient (CLI) | payer BC, SELFPAY ==
[2024-02-22 08:41] LABS: Cholesterol 205 mg/dL (140-199); HDL Cholesterol 102 mg/dL (40-60); LDL Cholesterol Calculated 93 mg/dL (<100); Triglycerides 50 mg/dL (35-150)
[2024-02-22 09:13] LABS: Prostate Specific Antigen Scrn 1.13 ng/mL (0.1-4.0)
[2024-02-23 03:36] LABS: Apolipoprotein B 82 mg/dL (<90)
== END ==
PROVIDERS: PCP Student in an Organized Health Care Education/Training Program; Referring Provider Student in an Organized Health Care Education/Training Program; Visit Provider Student in an Organized Health Care Education/Training Program
DX: Z12.5 Encounter for screening for malignant neoplasm of prostate (principal); Z82.49 Family history of ischemic heart disease and other diseases of the circulatory system
CPT/HCPCS: 36415; 80061; 82172; G0103

== ENCOUNTER → 2024-03-09 15:02 | Outpatient (CLI) | payer BC, SELFPAY ==
--- NOTE | 2024-03-09 20:32 | DI.NM.S_ITS ---
DATE OF SERVICE: 03/09/2024 PROCEDURE: Exercise stress test. INDICATIONS: Strong family history of coronary artery disease. Exercise stress test is being performed for CAD screening and risk stratification. CARDIAC STRESS: Patient underwent exercise stress test under the supervision of an attending staff. The patient walked on Donte protocol for 11 minutes and 47 seconds, achieved 12.5 METS of workload, maximum heart rate of 163 which was 102% of target heart rate, CECILY -32%. Baseline blood pressure 122/82 and peak blood pressure 192/100 with hypertensive blood pressure response. Baseline rhythm was sinus. During stress, no convincing ischemic changes seen. Occasional PVCs at peak exercise. No complex arrhythmias. Normal recovery. No chest pain. Had some shortness of breath. CONCLUSION: 1. Exercise stress test is negative for inducible ischemia. 2. Excellent exercise tolerance. Mildly hypertensive blood pressure response. No anginal symptoms. No complex arrhythmias. Overall, low- risk exercise stress test. Nico Bacon - JONAH/noah/AY doc#: [id number]/job#: [id number] dd: 03/09/2024 17:06:00 dt: 03/09/2024 20:01:00 DICTATING /COPIES TO: Sammi Beckham MD COPIES MNE: CONRAD;
== END ==
PROVIDERS: PCP Student in an Organized Health Care Education/Training Program; Referring Provider Student in an Organized Health Care Education/Training Program; Visit Provider Student in an Organized Health Care Education/Training Program
DX: Z13.6 Encounter for screening for cardiovascular disorders (principal); Z82.41 Family history of sudden cardiac death
CPT/HCPCS: 93017

== ENCOUNTER → 2025-04-11 07:53 | Outpatient (CLI) | payer BC, SELFPAY ==
[2025-04-11 08:14] LABS: Add Manual Diff / Slide Review NO; Hematocrit 46.2 % (41-53); Hemoglobin 15.8 g/dL (13.5-17.5); Lymphocytes Absolute Auto 2000 /uL (1100-4500); Mean Corpuscular HGB Conc 34.2 % (30-36); Mean Corpuscular Hemoglobin 31.0 PG (26-34); Mean Corpuscular Volume 90.8 fL (80-100); Platelet Count 254 X10^3/uL (150-400)
[2025-04-11 08:24] LABS: Hemoglobin A1C% w Est Avg Glu 5.6 % (4.0-6.0)
[2025-04-11 08:49] LABS: HEMOLYSIS < 15 (0-50); Iron 154 ug/dL (49-181)
[2025-04-11 08:51] LABS: Alanine Aminotransferase 34 IU/L (<50); Albumin 4.9 g/dL (3.5-5.0); Albumin Globulin Ratio 1.9 (1.0-2.8); Alkaline Phosphatase 52 U/L (38-126); Blood Urea Nitrogen 23 mg/dL (9-20); Calcium 9.4 mg/dL (8.4-10.2); Carbon Dioxide 28 mmol/L (22-32); Chloride 100 mmol/L (98-107); Cholesterol 218 mg/dL (140-199); Estimated Glomerular Filt Rate > 60 mL/min (>60); Globulin 2.6 g/dL (1.7-4.1); Glucose 102 mg/dL (70-99); HDL Cholesterol 94 mg/dL (40-60); HEMOLYSIS 22 (0-50); Potassium 4.7 mmol/L (3.4-5.1); Sodium 135 mmol/L (137-145); Total Protein 7.5 g/dL (6.3-8.2); Triglycerides 61 mg/dL (35-150)
[2025-04-11 09:00] LABS: Percent Iron Saturation 42 % (20-50); Total Iron Binding Capacity 371 ug/dL (261-462); Transferrin 331 mg/dL (206-381)
[2025-04-11 09:07] LABS: Vitamin D 25 Hydroxy (D3) 25.1 ng/mL (30.0-100.0)
[2025-04-11 09:21] LABS: Prostate Specific Antigen 1.34 ng/mL (0.10-4.00)
[2025-04-11 09:25] LABS: Ferritin 59 ng/mL (18-464)
[2025-04-11 09:57] LABS: Folate 13.9 ng/mL (2.76-20.0); Vitamin B12 562 pg/mL (239-931)
[2025-04-15 10:36] LABS: Percent Free Testosterone 2.37 % (1.50-4.20)
== END ==
PROVIDERS: PCP Student in an Organized Health Care Education/Training Program; Referring Provider Student in an Organized Health Care Education/Training Program; Visit Provider Student in an Organized Health Care Education/Training Program
DX: Z12.5 Encounter for screening for malignant neoplasm of prostate (principal); R53.83 Other fatigue; Z80.42 Family history of malignant neoplasm of prostate; Z13.220 Encounter for screening for lipoid disorders
CPT/HCPCS: 36415; 80053; 80061; 82172; 82306; 82607; 82728; 82746; 83036; 83540; 83550; 84153; 84402; 84403; 85025